=== PATIENT | male | born 1955 | race Caucasian/White ===

== ENCOUNTER 2016-10-06 17:55 | Emergency (ER) | payer BC ==
[2016-10-06 20:21] VITALS: BP 165/84
[2016-10-06] MEDS ORDERED: Cyclobenzaprine TAB* 10 MG PO ONE (20:41)
--- NOTE | 2016-10-06 20:41 | UC ---
Lower Extremity/Ankle HPI - HPI Summary HPI Summary: bent over lifting boxes off a pallet at work today. felt pain in the back of his right thigh. Now hurts to weight bear - History of Current Complaint Chief Complaint: UCLowerExtremity Stated Complaint: LEG PAIN Time Seen by Provider: 10/06/16 20:25 Hx Obtained From: Patient Onset/Duration: Sudden Onset, Lasting Hours - 4, Still Present Severity Initially: Moderate Severity Currently: Moderate Pain Intensity: 7 Pain Scale Used: 0-10 Numeric Aggravating Factor(s): Standing, Ambulation Alleviating Factor(s): Rest, Ice Able to Bear Weight: Yes - Allergies/Home Medications Allergies/Adverse Reactions: Allergies Allergy/AdvReac Type Severity Reaction Status Date / Time No Known Allergies Allergy Verified 10/06/16 20:21 Home Medications: Home Medications Acetaminophen [Eq Pain Reliever] 1,000 mg PO 10/06/16 [History] Cholecalciferol [Vitamin D3] 1,000 unit PO 10/06/16 [History] Magnesium 500 mg PO 10/06/16 [History] Multiple Vitamins W/ Minerals [Multivitamin Men 50+] 1 tab PO 10/06/16 [History] PMH/Surg Hx/FS Hx/Imm Hx Previously Healthy: Yes - blood clot 20 years ago, back issues Endocrine History Of: Denies: Diabetes, Thyroid Disease Cardiovascular History Of: Denies: Cardiac Disorders, Hypertension Respiratory History Of: Denies: COPD, Asthma GI/ History Of: Denies: Ulcer - Surgical History Surgical History: None - Family History Known Family History: Positive: None - Social History Occupation: Employed Full-time Lives: With Family Alcohol Use: None Substance Use Type: None Smoking Status (MU): Never Smoked Tobacco Review of Systems Constitutional: Negative Skin: Negative Eyes: Negative ENT: Negative Respiratory: Negative Cardiovascular: Negative Gastrointestinal: Negative Genitourinary: Negative Motor: Negative Neurovascular: Negative Musculoskeletal: Negative, Myalgia - right posterior calf pain Neurological: Negative Psychological: Negative All Other Systems Reviewed And Are Negative: Yes Physical Exam Triage Information Reviewed: Yes Appearance: Well-Appearing, No Pain Distress, Well-Nourished Vital Signs: Initial Vital Signs Temp 97.1 F 10/06/16 20:15 Pulse 53 10/06/16 20:15 Resp 18 10/06/16 20:15 BP 165/84 10/06/16 20:15 Pulse Ox 98 10/06/16 20:15 Vital Signs Reviewed: Yes Eye Exam: Normal Eyes: Positive: Conjunctiva Clear ENT Exam: Normal ENT: Positive: Normal ENT inspection, Hearing grossly normal. Negative: Pharynx normal, Nasal congestion, Nasal drainage, TMs normal, Trismus, Muffled/ hoarse voice Neck exam: Normal Neck: Positive: Supple, Nontender, No Lymphadenopathy Respiratory Exam: Normal Respiratory: Positive: Chest non-tender, Lungs clear, Normal breath sounds, No respiratory distress, No accessory muscle use Cardiovascular Exam: Normal Cardiovascular: Positive: RRR, No Murmur, Pulses Normal, Brisk Capillary Refill Musculoskeletal Exam: Other Musculoskeletal: Positive: Strength Intact, ROM Intact, Edema @ - posterior right calf Neurological Exam: Normal Neurological: Positive: Alert, Muscle Tone Normal Psychological Exam: Normal Skin Exam: Normal Lower Extremity Course/Dx - Course Course Of Treatment: ice elevation rest pain ed follow with [id number] BP with PCP this week - Differential Dx/Diagnosis Differential Diagnosis/HQI/PQRI: Contusion, Sprain, Strain Provider Diagnoses: Hamstring strain right posterior calf, Hypertension with out previous diagnosis Discharge - Discharge Plan Condition: Stable Disposition: HOME Prescriptions: Cyclobenzaprine TAB* [Flexeril 10 MG TAB*] 10 mg PO TID PRN #15 tab PRN Reason: Spasms - Muscle Meloxicam(NF) [Mobic(NF)] 7.5 mg PO BID #14 tab Patient Education Materials: Muscle Strain (ED), Muscle Spasm (ED), Ice Pack Application (ED), DASH Eating Plan (ED), Hypertension (ED) Forms: *Work Release Referrals: Anthony Conroy DO [Doctor of Osteopathy] - 3 Days Additional Instructions: Your Blood pressure today was 165/84.
== END 2016-10-06 21:08 | disposition home or self-care (01) ==
LOC: UCEAST 17:55
DX: S76.911A Strain of unspecified muscles, fascia and tendons at thigh level, right thigh, initial encounter (principal); X50.1XXA Overexertion from prolonged static or awkward postures, initial encounter; Y93.89 Activity, other specified; Y92.89 Other specified places as the place of occurrence of the external cause; Y99.0 Civilian activity done for income or pay; I10 Essential (primary) hypertension; Z86.718 Personal history of other venous thrombosis and embolism
CPT/HCPCS: 99213; A9270-GY; G0463

== ENCOUNTER 2016-10-09 13:39 | Emergency (ER) | payer SELFPAY ==
[2016-10-09 17:38] VITALS: BP 177/99
--- NOTE | 2016-10-09 17:54 | UC ---
Lower Extremity/Ankle HPI - HPI Summary HPI Summary: here to get right thigh re-checked from a strain injury at work 3 days ago--- significantly less pain still painful to walk---and certain lifting movements - History of Current Complaint Chief Complaint: UCLowerExtremity Stated Complaint: LEG COMPLAINT Time Seen by Provider: 10/09/16 17:40 Hx Obtained From: Patient Onset/Duration: Sudden Onset, Lasting Days - 3, Still Present Severity Initially: Moderate Severity Currently: Mild Aggravating Factor(s): Standing, Ambulation Alleviating Factor(s): Rest, Elevation, Ice, OTC Meds Able to Bear Weight: Yes Related History: Occupational Injury - Allergies/Home Medications Allergies/Adverse Reactions: Allergies Allergy/AdvReac Type Severity Reaction Status Date / Time No Known Allergies Allergy Verified 10/09/16 17:31 PMH/Surg Hx/FS Hx/Imm Hx Previously Healthy: Yes Endocrine History Of: Denies: Diabetes, Thyroid Disease Cardiovascular History Of: Denies: Cardiac Disorders, Hypertension Respiratory History Of: Denies: COPD, Asthma GI/ History Of: Denies: Ulcer - Surgical History Surgical History: None - Family History Known Family History: Positive: None - Social History Occupation: Employed Full-time Lives: With Family Alcohol Use: None Substance Use Type: None Smoking Status (MU): Never Smoked Tobacco Review of Systems Constitutional: Negative Skin: Negative Eyes: Negative ENT: Negative Respiratory: Negative Cardiovascular: Negative Gastrointestinal: Negative Genitourinary: Negative Motor: Negative Neurovascular: Negative Musculoskeletal: Myalgia - post. rigth thigh "Hamstring" Neurological: Negative Psychological: Negative All Other Systems Reviewed And Are Negative: Yes Physical Exam Triage Information Reviewed: Yes Appearance: Well-Appearing, No Pain Distress, Well-Nourished Vital Signs: Initial Vital Signs Temp 97.3 F 10/09/16 17:33 Pulse 66 10/09/16 17:33 Resp 16 10/09/16 17:33 BP 177/99 10/09/16 17:33 Pulse Ox 97 10/09/16 17:33 Vital Signs Reviewed: Yes Eye Exam: Normal Eyes: Positive: Conjunctiva Clear ENT Exam: Normal ENT: Positive: Normal ENT inspection, Hearing grossly normal, Pharynx normal. Negative: Nasal congestion, Nasal drainage, Trismus, Muffled/hoarse voice Dental Exam: Normal Neck exam: Normal Neck: Positive: Supple, Nontender, No Lymphadenopathy Respiratory Exam: Normal Respiratory: Positive: Chest non-tender, Lungs clear, Normal breath sounds, No respiratory distress, No accessory muscle use Cardiovascular Exam: Normal Cardiovascular: Positive: RRR, No Murmur, Pulses Normal, Brisk Capillary Refill Musculoskeletal Exam: Normal Musculoskeletal: Positive: Strength Intact, ROM Intact, No Edema Neurological: Positive: Muscle Tone Normal Psychological Exam: Normal Skin Exam: Normal Lower Extremity Course/Dx - Course Course Of Treatment: continue treatment as planned, off work as planned follow with ortho if fails to improve. HBP DASH Diet information follow with Dr. Conroy in next 7-14 days - Differential Dx/Diagnosis Differential Diagnosis/HQI/PQRI: Contusion, Sprain, Strain Provider Diagnoses: Right thigh muscle strain, High blood pressure withour current treatment or DX of HTN Discharge - Discharge Plan Condition: Stable Disposition: HOME Patient Education Materials: Muscle Strain (ED), DASH Eating Plan (ED), Hypertension (ED) Referrals: Anthony Conroy DO [Primary Care Provider] - 1 Week (or as planned to follow up and recheck blood pressure) Additional Instructions: Decrease Meloxicam to 1 time a day
== END 2016-10-09 18:03 | disposition home or self-care (01) ==
LOC: UCEAST 13:39
DX: S76.911A Strain of unspecified muscles, fascia and tendons at thigh level, right thigh, initial encounter (principal); X50.0XXA Overexertion from strenuous movement or load, initial encounter; R03.0 Elevated blood-pressure reading, without diagnosis of hypertension
CPT/HCPCS: 99211; G0463

== ENCOUNTER 2016-10-12 11:38 | Emergency (ER) | payer OTHER ==
[2016-10-12 13:34] VITALS: BP 157/87
--- NOTE | 2016-10-12 14:15 | UC ---
Vipul Cullen Soohyun, scribed for Keyla Díaz MD on 10/12/16 at 1358 . Lower Extremity/Ankle HPI - HPI Summary HPI Summary: This 61 y/o male presents to [facility] for persistent RLE leg pain since 6 days ago ( 10/06/2016). Pt was lifting and moving containers at [employer] at work when he pulled his right hamstring. Weight bearing makes the pain worse. He visited twice previously for the same complaint, and was discharged with flexeril rx, increased meloxicam dose, and walker from the last visit. He decided to visit today again when he became concerned with persistent pain and hoping for ortho referral. RLE leg pain is slowly getting better, but he doesn't feel ready to get back to work. PMHx includes DVT. Primary care involves Dr. Conroy, but pt hasn't been able to follow up with his primary due to the office not dealing with work comp. PMHx includes chronic back pain. Former smoker and nondrinker. Plan of care involving ortho outpatient f/u and differential dx including DVT are discussed with pt, and he is agreeable. Pt is strongly encouraged to watch out for any fever, redness, or worsening pain. - History of Current Complaint Stated Complaint: LEG COMPLAINT Hx Obtained From: Patient, Medical Records Onset/Duration: Lasting Days, Still Present Severity Initially: Moderate Severity Currently: Moderate Pain Intensity: 1 Pain Scale Used: 0-10 Numeric Aggravating Factor(s): Other - Weight bearing Alleviating Factor(s): Rest Able to Bear Weight: Yes Related History: Occupational Injury - Allergies/Home Medications Allergies/Adverse Reactions: Allergies Allergy/AdvReac Type Severity Reaction Status Date / Time No Known Allergies Allergy Verified 10/12/16 13:22 PMH/Surg Hx/FS Hx/Imm Hx Previously Healthy: No Endocrine History Of: Denies: Diabetes, Thyroid Disease Cardiovascular History Of: Reports: Deep Vein Thrombosis Denies: Cardiac Disorders, Hypertension Respiratory History Of: Denies: COPD, Asthma GI/ History Of: Denies: Ulcer - Surgical History Surgical History: None - Family History Known Family History: Negative: Cardiac Disease - Social History Alcohol Use: Rare Substance Use Type: None Smoking Status (MU): Former Smoker Review of Systems Constitutional: Negative Skin: Negative Eyes: Negative ENT: Negative Respiratory: Negative Cardiovascular: Negative Gastrointestinal: Negative Genitourinary: Negative Motor: Negative Neurovascular: Negative Musculoskeletal: Myalgia, Other: - RLE leg pain Neurological: Negative Psychological: Negative All Other Systems Reviewed And Are Negative: Yes Physical Exam Triage Information Reviewed: Yes Appearance: Well-Appearing, Well-Nourished, Pain Distress Vital Signs: Initial Vital Signs Temp 98.7 F 10/12/16 13:24 Pulse 64 10/12/16 13:24 Resp 18 10/12/16 13:24 BP 157/87 10/12/16 13:24 Pulse Ox 95 10/12/16 13:24 Vital Signs Reviewed: Yes Eyes: Positive: Conjunctiva Clear ENT: Positive: Normal ENT inspection, Hearing grossly normal. Negative: Muffled /hoarse voice Neck: Positive: Supple, Nontender Respiratory: Positive: Lungs clear, Normal breath sounds, No respiratory distress Cardiovascular: Positive: No Murmur, Pulses Normal, Brisk Capillary Refill Musculoskeletal: Positive: Strength Limited @ - right leg, ROM Limited @ - right leg, Other: - Pain at right mid posterior thigh, distal pulses intact Neurological: Positive: Alert, Muscle Tone Normal - No focal weakness. Sensation intact Psychological Exam: Normal Skin Exam: Normal - Negative ecchymosis Lower Extremity Course/Dx - Course Course Of Treatment: Home medication/supplement list are reviewed. Vitals are reviewed, and elevated blood pressure of 157/87 is noted. No known PMHx of HTN. Pt with 3rd visit for same workman's comp leg injury. Pt also with hx DVT, but pain is improving, so do not feel that pt has a new DVT. Will refer to orthopedics for further eval and RX. Appt made for 10/15/16 at 2:30pm with Dr. Rubio. - Differential Dx/Diagnosis Differential Diagnosis/HQI/PQRI: Sprain, Strain, Other - hamstring strain, hamstring tear Provider Diagnoses: 1) Right leg pain 2) Elevated blood pressure without dx of HTN. Discharge - Discharge Plan Condition: Stable Disposition: HOME Prescriptions: Cyclobenzaprine TAB* [Flexeril 10 MG TAB*] 10 mg PO TID PRN #15 tab PRN Reason: Spasms - Muscle Patient Education Materials: Leg Pain (ED) Forms: *Work Release Referrals: Jared Rubio MD [Medical Doctor] - Anthony Conroy DO [Primary Care Provider] - 10/15/16 2:30 pm Additional Instructions: RETURN TO URGENT CARE FOR ANY NEW OR WORSENING SYMPTOMS SUCH REDNESS, FEVER, OR INCREASED PAIN. The documentation as recorded by the Vipul moy Soohyun accurately reflects the service I personally performed and the decisions made by , Keyla Díaz MD.
== END 2016-10-12 14:27 | disposition home or self-care (01) ==
LOC: UCEAST 11:38
DX: M54.9 Dorsalgia, unspecified (principal); M79.604 Pain in right leg; G89.29 Other chronic pain; R03.0 Elevated blood-pressure reading, without diagnosis of hypertension; Z86.718 Personal history of other venous thrombosis and embolism; Z87.891 Personal history of nicotine dependence
CPT/HCPCS: 99211; G0463

== ENCOUNTER 2017-04-23 14:22 | Emergency (ER) | payer BC, OTHER ==
[2017-04-23 14:42] VITALS: BP 166/85
--- NOTE | 2017-04-23 15:31 | UC ---
Skin Complaint HPI - HPI Summary HPI Summary: Patient presents with complaints of a skin tag that was on the right side of his neck,he scrapped it off accidentally and he couldn't get it to stop bleding. He is not on anticoagulants. He presents for evaluation and assistance with the bleedings. He has a dressing on the left side of his neck. - History of Current Complaint Chief Complaint: UCWounds Time Seen by Provider: 04/23/17 15:14 Stated Complaint: WOUND ON NECK Hx Obtained From: Patient Onset/Duration: Sudden Onset Skin Exposure Onset/Duration: Minutes Ago Timing: Constant Onset Severity: Moderate Aggravating Factor(s): Touch Alleviating Factor(s): Other - pressure Associated Signs & Symptoms: Positive: Negative - Allergy/Home Medications Allergies/Adverse Reactions: Allergies Allergy/AdvReac Type Severity Reaction Status Date / Time No Known Allergies Allergy Verified 04/23/17 14:43 Review of Systems Constitutional: Negative Skin: Other - bleeding skin tag on left side of neck. Eyes: Negative ENT: Negative Respiratory: Negative Cardiovascular: Negative Gastrointestinal: Negative Genitourinary: Negative Motor: Negative Neurovascular: Negative Musculoskeletal: Negative All Other Systems Reviewed And Are Negative: Yes PMH/Surg Hx/FS Hx/Imm Hx Previously Healthy: Yes - Surgical History Surgical History: None - Family History Known Family History: Positive: None Negative: Cardiac Disease - Social History Lives: With Family Alcohol Use: Occasionally Substance Use Type: None Smoking Status (MU): Former Smoker - Immunization History Most Recent Influenza Vaccination: 03/2017 Most Recent Tetanus Shot: Unknown Physical Exam Triage Information Reviewed: Yes Appearance: Well-Appearing Vital Signs: Initial Vital Signs Temp 98.2 F 04/23/17 14:36 Pulse 71 04/23/17 14:36 Resp 16 04/23/17 14:36 BP 166/85 04/23/17 14:36 Pulse Ox 97 04/23/17 14:36 Vital Signs Reviewed: Yes Eye Exam: Normal ENT Exam: Normal Neck exam: Normal Neck: Positive: 1 Respiratory Exam: Normal Cardiovascular Exam: Normal Musculoskeletal Exam: Normal Skin Exam: Other Course/Dx - Course Course Of Treatment: Patient presents due to uncontrolled bleeding from a skin tag that he accidentally scrapped of, he arrives with dressing in place, which was removed and the bleeding has stopped. I reapplied another dressing and patient was discharged and referred to dermatology. - Differential Diagnoses - Skin Complaint Differential Diagnoses: Other - skin tag - Diagnoses Provider Diagnoses: skin tag Discharge - Discharge Plan Condition: Stable Disposition: HOME Referrals: Anthony Conroy DO [Primary Care Provider] - Additional Instructions: The bleeding from the skin tag has stopped/ Patient has his own dermatologists.
== END 2017-04-23 15:26 | disposition home or self-care (01) ==
LOC: UCEAST 14:22
DX: L91.8 Other hypertrophic disorders of the skin (principal); Z87.891 Personal history of nicotine dependence
CPT/HCPCS: 99211; G0463

== ENCOUNTER 2023-05-18 20:58 | Observation (INO) ==
[2023-05-18] MEDS ORDERED: Famotidine IV 10 MG/ML 2 ml VIAL (20 mg) IV SLOW PU ONE (21:36)
[2023-05-18] MEDS ORDERED: Al Hydrox/Mg Hydrox/Simet LIQ 30 ML UDC PO ONE (21:36)
[2023-05-18 21:37] LABS: ABS Basophils 0.1 10^3/uL (0.0-0.1); ABS Lymphocytes 0.7 10^3/uL (1.0-4.8); ABS Monocytes 0.8 10^3/uL (0.0-1.1); ABS Neutrophils 10.5 10^3/uL (1.5-7.6); ABS Nucleated RBC 0.01 10^3/ul; Eosinophil % 0.1 %; Hematocrit 40.7 % (38-53); Hemoglobin 13.6 g/dL (13.2-16.3); Lymphocyte % 5.6 %; Mean Corpuscular Hemoglobin 30.8 pg (27-33); Mean Corpuscular Hgb Conc 33.5 g/dL (31-36); Mean Corpuscular Volume 91.9 fL (80-97); Mean Platelet Volume 7.8 fL (7.5-11.2); Platelet Count 200 10^3/uL (150-450); Red Blood Count 4.43 10^6/uL (4.06-5.63); Red Cell Distribution Width 13.7 % (12-17)
[2023-05-18 21:55] LABS: Albumin 3.6 g/dL (3.2-5.2); C Reactive Protein 116.71 mg/L (<8.01); Creatinine, Serum 0.96 mg/dL (0.67-1.17); Globulin 3.6 g/dL (2-4); Magnesium 2.1 mg/dL (1.9-2.7); Potassium 3.4 mmol/L (3.5-5.0); Total Bilirubin 1.1 mg/dL (0.2-1.0); Total Protein 7.2 g/dL (6.4-8.9); eGFR CKD-EPI 86.1 (>60)
[2023-05-18] MEDS ORDERED: Iohexol 350 (CONTRAST) 500 ML MDV IV ONE (22:53)
[2023-05-18 23:42] LABS: High Sensitivity Troponin 1 Hr 12 pg/mL (<20)
[2023-05-19] MEDS ORDERED: Piperacillin/Tazobac 3.375 BAG 3.375 GM/100 ML BAG IV ONE (00:01)
[2023-05-19] MEDS ORDERED: Lactated Ringers 1000 ml BAG 1,000 ML IV ONE (00:58)
[2023-05-19 02:10] LABS: Urine Appearance Clear; Urine Bilirubin Negative (Negative); Urine Blood Negative (Negative); Urine Color Yellow; Urine Glucose 3+(>=500 mg/dL) (Negative); Urine Ketones Negative (Negative); Urine Nitrite Negative (Negative); Urine Protein Negative (Negative); Urine Urobilinogen Negative (Negative)
[2023-05-19] MEDS ORDERED: Zosyn per Pharmacy NOTE FOLLOW UP SCH (05:00)
[2023-05-19] MEDS ORDERED: Potassium Chlor 20 meq TAB.ER PO ONE (05:17)
[2023-05-19] MEDS: NS 0.9% 1000 ml BAG 1,000 ML IV SCH ×2 (05:19→14:35)
[2023-05-19] MEDS: ZOSYN 3.375 GM Q8H per EXTENDED INFUSION IV SCH ×4 (05:19→22:34)
[2023-05-19 08:57] LABS: ABS Lymphocytes 0.8 10^3/uL (1.0-4.8); ABS Monocytes 0.7 10^3/uL (0.0-1.1); ABS Neutrophils 7.7 10^3/uL (1.5-7.6); Eosinophil % 0.2 %; Hemoglobin 13.1 g/dL (13.2-16.3); Lymphocyte % 8.7 %; Mean Corpuscular Hemoglobin 31.5 pg (27-33); Mean Corpuscular Hgb Conc 34.4 g/dL (31-36); Mean Corpuscular Volume 91.6 fL (80-97); Mean Platelet Volume 7.8 fL (7.5-11.2); Platelet Count 198 10^3/uL (150-450); Red Blood Count 4.15 10^6/uL (4.06-5.63); Red Cell Distribution Width 13.9 % (12-17); White Blood Count 9.2 10^3/uL (3.6-10.2)
[2023-05-19] MEDS ORDERED: CMCS:Meloxicam 7.5 mg TAB (NF) PO SCH (09:00)
[2023-05-19 09:12] LABS: Calcium 8.7 mg/dL (8.6-10.3); Creatinine, Serum 0.97 mg/dL (0.67-1.17)
[2023-05-19 09:25] LABS: Albumin 3.3 g/dL (3.2-5.2); Direct Bilirubin 0.2 mg/dL (0.03-0.18); Globulin 3.3 g/dL (2-4); Indirect Bilirubin 0.9 mg/dL (0.3-1.0); Total Bilirubin 1.1 mg/dL (0.2-1.0); Total Protein 6.6 g/dL (6.4-8.9)
[2023-05-19] MEDS ORDERED: Morphine 2 MG/ML SYRINGE IV PRN (11:14)
[2023-05-19] MEDS ORDERED: Ondansetron 4 mg VIAL 2 MG/ML 2 ml VIAL IV PRN (11:14)
[2023-05-20] MEDS: NS 0.9% 1000 ml BAG 1,000 ML IV SCH (02:59)
[2023-05-20 06:13] LABS: ABS Lymphocytes 0.7 10^3/uL (1.0-4.8); ABS Monocytes 0.4 10^3/uL (0.0-1.1); Eosinophil % 0.4 %; Hematocrit 37.6 % (38-53); Hemoglobin 12.8 g/dL (13.2-16.3); Lymphocyte % 9.7 %; Mean Corpuscular Hemoglobin 31.3 pg (27-33); Mean Corpuscular Hgb Conc 34.2 g/dL (31-36); Mean Corpuscular Volume 91.4 fL (80-97); Nucleated Red Blood Cells % 0.1 %/100WBC (0.0-0.8); Platelet Count 183 10^3/uL (150-450); Red Blood Count 4.11 10^6/uL (4.06-5.63); Red Cell Distribution Width 13.9 % (12-17); White Blood Count 7.2 10^3/uL (3.6-10.2)
[2023-05-20 06:29] LABS: Calcium 8.5 mg/dL (8.6-10.3); Creatinine, Serum 0.91 mg/dL (0.67-1.17); Magnesium 2.2 mg/dL (1.9-2.7); Potassium 4.2 mmol/L (3.5-5.0); eGFR CKD-EPI 91.8 (>60)
[2023-05-20] MEDS: ZOSYN 3.375 GM Q8H per EXTENDED INFUSION IV SCH (06:34)
[2023-05-20 10:19] VITALS: BP 130/79
[2023-05-20 13:29] LABS: Albumin 3.2 g/dL (3.2-5.2); Direct Bilirubin 2.4 mg/dL (0.03-0.18); Globulin 3.1 g/dL (2-4); Indirect Bilirubin 0.9 mg/dL (0.3-1.0); Total Bilirubin 3.3 mg/dL (0.2-1.0); Total Protein 6.3 g/dL (6.4-8.9)
== END 2023-05-20 14:24 | disposition home or self-care (01) ==
LOC: ED 20:58 → EDHOLD 05-19 02:45 → SUATTDRO 05-19 02:45 → INTOOBSV 05-19 02:45 → SSU 05-19 11:33
PROVIDERS: ADMIT Internal Medicine; ATTEND Internal Medicine

== ENCOUNTER 2023-06-13 10:57 | Inpatient (IN) ==
[2023-06-13] MEDS: NS 0.9% 1000 ml BAG 1,000 ML IV ONE (12:10)
[2023-06-13 12:11] LABS: Hematocrit 43.1 % (38-53); Hemoglobin 14.7 g/dL (13.2-16.3); Mean Corpuscular Hemoglobin 30.9 pg (27-33); Mean Corpuscular Hgb Conc 34.2 g/dL (31-36); Mean Corpuscular Volume 90.3 fL (80-97); Red Blood Count 4.77 10^6/uL (4.06-5.63); Red Cell Distribution Width 15.3 % (12-17); White Blood Count 6.3 10^3/uL (3.6-10.2)
[2023-06-13 12:24] LABS: Albumin 3.9 g/dL (3.2-5.2); Albumin/Globulin Ratio 1.3 (1-3); Calcium 9.2 mg/dL (8.6-10.3); Creatinine, Serum 1.15 mg/dL (0.67-1.17); Globulin 3.1 g/dL (2-4); Magnesium 1.9 mg/dL (1.9-2.7); Potassium 3.9 mmol/L (3.5-5.0); eGFR CKD-EPI 69.3 (>60)
[2023-06-13 13:11] LABS: ABS Eosinophils 0.1 10^3/uL (0.0-0.5); ABS Lymphocytes 0.6 10^3/uL (1.0-4.8); ABS Monocytes 0.6 10^3/uL (0.0-1.1); ABS Neutrophils 4.9 10^3/uL (1.5-7.6); ABS Nucleated RBC 0.03 10^3/ul; Eosinophil % 1.4 %; Lymphocyte % 9.7 %; Mean Platelet Volume 8.3 fL (7.5-11.2); Nucleated Red Blood Cells % 0.4 %/100WBC (0.0-0.8); Platelet Count 98 10^3/uL (150-450)
[2023-06-13] MEDS: Iohexol 350 (CONTRAST) 500 ML MDV IV ONE (14:46)
[2023-06-13] MEDS: Lactated Ringers 1000 ml BAG 1,000 ML IV ONE (14:50)
[2023-06-13] MEDS: Piperacillin/Tazobac 3.375 BAG 3.375 GM/100 ML BAG IV ONE (14:51)
[2023-06-13 15:41] LABS: Direct Bilirubin 4.9 mg/dL (0.03-0.18); Indirect Bilirubin 1.9 mg/dL (0.3-1.0); Total Bilirubin 6.8 mg/dL (0.2-1.0)
[2023-06-13] MEDS ORDERED: Zosyn per Pharmacy NOTE FOLLOW UP SCH (23:45)
[2023-06-14] MEDS: Heparin 5000 UNITS/ML 1 mL VIAL SUBCUT ONE (00:15)
[2023-06-14] MEDS: ZOSYN 3.375 GM x ONE DOSE over 30 miuntes IV (00:42)
[2023-06-14] MEDS: ZOSYN 3.375 GM Q8H per EXTENDED INFUSION IV SCH (04:48)
[2023-06-14] MEDS: Ampicillin ADVAN 2 GM in NS 0.9% 100 ml BAG 100 ML IVPB SCH ×2 (06:45→17:00)
[2023-06-14 06:56] LABS: Albumin 3.4 g/dL (3.2-5.2); Albumin/Globulin Ratio 1.3 (1-3); Calcium 8.8 mg/dL (8.6-10.3); Creatinine, Serum 1.02 mg/dL (0.67-1.17); Globulin 2.7 g/dL (2-4); Magnesium 1.8 mg/dL (1.9-2.7); Potassium 3.7 mmol/L (3.5-5.0); Total Bilirubin 5.7 mg/dL (0.2-1.0); Total Protein 6.1 g/dL (6.4-8.9); eGFR CKD-EPI 80.1 (>60)
[2023-06-14 07:15] LABS: Hematocrit 39.3 % (38-53); Hemoglobin 13.1 g/dL (13.2-16.3); Mean Corpuscular Hemoglobin 30.3 pg (27-33); Mean Corpuscular Hgb Conc 33.4 g/dL (31-36); Mean Corpuscular Volume 90.7 fL (80-97); Mean Platelet Volume 8.8 fL (7.5-11.2); Platelet Count 84 10^3/uL (150-450); Red Blood Count 4.33 10^6/uL (4.06-5.63); White Blood Count 4.2 10^3/uL (3.6-10.2)
[2023-06-14] MEDS: Magnesium Sulfate 2 gm BAG 2 GM/50 ML BAG IVPB ONE (08:05)
[2023-06-14] MEDS: cefTRIAXone 1 gm/50 mL D5W 1 GM/50 ML BAG IV SCH (08:09)
[2023-06-14] MEDS ORDERED: Ondansetron 4 mg VIAL 2 MG/ML 2 ml VIAL IV PRN (11:18)
[2023-06-14 12:20] LABS: Urine Appearance Clear; Urine Bilirubin Negative (Negative); Urine Blood Negative (Negative); Urine Color Amber; Urine Glucose 1+(50 mg/dL) (Negative); Urine Ketones Trace (Negative); Urine Nitrite Negative (Negative); Urine Protein Negative (Negative); Urine Urobilinogen Negative (Negative)
[2023-06-14] MEDS: metroNIDAZOLE IV 500 MG/100ML 500 MG/100 ML BAG IVPB SCH ×2 (12:39→21:36)
[2023-06-14] MEDS: KCL 20 MEQ/100 ML IVPREMIX 20 MEQ/100 ML BAG IV SCH (13:57)
[2023-06-15 05:51] LABS: ABS Eosinophils 0.2 10^3/uL (0.0-0.5); ABS Lymphocytes 0.8 10^3/uL (1.0-4.8); ABS Monocytes 0.4 10^3/uL (0.0-1.1); ABS Neutrophils 2.8 10^3/uL (1.5-7.6); Hematocrit 38.2 % (38-53); Hemoglobin 12.9 g/dL (13.2-16.3); Lymphocyte % 17.9 %; Mean Corpuscular Hemoglobin 30.6 pg (27-33); Mean Corpuscular Hgb Conc 33.9 g/dL (31-36); Mean Corpuscular Volume 90.4 fL (80-97); Mean Platelet Volume 8.4 fL (7.5-11.2); Nucleated Red Blood Cells % 0.1 %/100WBC (0.0-0.8); Platelet Count 89 10^3/uL (150-450); Red Blood Count 4.23 10^6/uL (4.06-5.63); White Blood Count 4.3 10^3/uL (3.6-10.2)
[2023-06-15 05:58] LABS: Albumin 3.3 g/dL (3.2-5.2); Albumin/Globulin Ratio 1.2 (1-3); Calcium 8.5 mg/dL (8.6-10.3); Creatinine, Serum 0.87 mg/dL (0.67-1.17); Globulin 2.7 g/dL (2-4); Magnesium 1.9 mg/dL (1.9-2.7); Potassium 3.9 mmol/L (3.5-5.0); Total Bilirubin 2.1 mg/dL (0.2-1.0)
[2023-06-15] MEDS: Lactated Ringers 1000 ml BAG 1,000 ML IV SCH (12:56)
[2023-06-15] MEDS: Buffered Lidocaine 1% SYRIN 1 ml INTRADERM ONE (12:56)
[2023-06-15] MEDS: Heparin 5000 UNITS/ML 1 mL VIAL SUBCUT SCH (21:07)
[2023-06-16 06:20] LABS: ABS Eosinophils 0.2 10^3/uL (0.0-0.5); ABS Lymphocytes 0.8 10^3/uL (1.0-4.8); ABS Monocytes 0.4 10^3/uL (0.0-1.1); ABS Neutrophils 2.5 10^3/uL (1.5-7.6); Eosinophil % 4.4 %; Hematocrit 37.9 % (38-53); Hemoglobin 12.6 g/dL (13.2-16.3); Lymphocyte % 20.3 %; Mean Corpuscular Hemoglobin 30.2 pg (27-33); Mean Corpuscular Hgb Conc 33.4 g/dL (31-36); Mean Corpuscular Volume 90.6 fL (80-97); Nucleated Red Blood Cells % 0.1 %/100WBC (0.0-0.8); Platelet Count 88 10^3/uL (150-450); Red Blood Count 4.18 10^6/uL (4.06-5.63); Red Cell Distribution Width 14.6 % (12-17); White Blood Count 3.8 10^3/uL (3.6-10.2)
[2023-06-16] MEDS ORDERED: Bupivacaine 0.25% SDV PF 10 ML VIAL INJ ONE (06:50)
[2023-06-16] MEDS ORDERED: Lactated Ringers 1000 ml BAG 1,000 ML IV SCH (07:00)
[2023-06-16] MEDS ORDERED: Bupivacaine 0.25% SDV 30 ML ONE (07:07)
[2023-06-16] MEDS ORDERED: Propofol 10 MG/ML 20 ML BTL ONE (07:12)
[2023-06-16] MEDS ORDERED: Rocuronium 50 mg VIAL 10 mg/ml 5 ml VIAL (50 mg) ONE ×2 (07:12→08:19)
[2023-06-16] MEDS ORDERED: fentaNYL 100 mcg/2 ml 50 MCG/ML VIAL ONE ×2 (07:14→08:58)
[2023-06-16] MEDS ORDERED: Midazolam 2 mg/2 ml VIAL 1 mg/ml 2 ml VIAL (2 mg) ONE (07:14)
[2023-06-16] MEDS ORDERED: Dexmedetomidine 200 mcg/2 ml 2 ml VIAL (200 mcg) ONE (07:46)
[2023-06-16 07:49] LABS: Calcium 8.3 mg/dL (8.6-10.3); Creatinine, Serum 0.92 mg/dL (0.67-1.17); Magnesium 1.8 mg/dL (1.9-2.7); Potassium 3.7 mmol/L (3.5-5.0); eGFR CKD-EPI 90.6 (>60)
[2023-06-16] MEDS ORDERED: Dexamethasone IV 4 MG/ML VIAL 1 ml VIAL ONE (07:53)
[2023-06-16] MEDS ORDERED: Ondansetron 4 mg VIAL 2 MG/ML 2 ml VIAL ONE (07:53)
[2023-06-16] MEDS ORDERED: fentaNYL 100 mcg/2 ml 50 MCG/ML VIAL IV PRN (08:11)
[2023-06-16] MEDS ORDERED: Naloxone 0.4 mg VIAL 0.4 mg/ml 1 ml VIAL IV PRN (08:11)
[2023-06-16] MEDS ORDERED: Ondansetron 4 mg VIAL 2 MG/ML 2 ml VIAL IV PRN (08:11)
[2023-06-16] MEDS ORDERED: HYDROmorphone 1 MG/1 ML SYRINGE IV PRN (08:11)
[2023-06-16] MEDS ORDERED: Metoclopramide 5 MG/ML VIAL (10 mg) ONE (09:53)
[2023-06-16] MEDS: Metoclopramide 5 MG/ML VIAL (10 mg) IV PRN (09:54)
[2023-06-16 13:04] VITALS: BP 120/68
[2023-06-16] MEDS ORDERED: Ampicillin ADVAN 2 GM in NS 0.9% 100 ml BAG 100 ML IVPB SCH (14:00)
[2023-06-16] MEDS ORDERED: [UNRECOGNIZED DRUG - OTHER] LEFT EYE SCH (21:00)
[2023-06-16] MEDS ORDERED: NEOMY LEFT EYE SCH (21:00)
== END 2023-06-16 12:45 | disposition home or self-care (01) | DRG 418 ==
LOC: ED 10:57 → EDHOLD 10:57 → SUATTDRO 20:31 → SSU 22:37
PROVIDERS: ADMIT Internal Medicine; ATTEND Student in an Organized Health Care Education/Training Program

== ENCOUNTER 2023-06-16 18:46 | Inpatient (IN) ==
[2023-06-16] MEDS: Ampicillin ADVAN 2 GM in NS 0.9% 100 ml BAG 100 ML IVPB SCH (22:28)
[2023-06-16] MEDS ORDERED: Lactated Ringers 1000 ml BAG 1,000 ML IV ONE (23:15)
[2023-06-17] MEDS: Ampicillin ADVAN 2 GM in NS 0.9% 100 ml BAG 100 ML IVPB SCH ×7 (02:56→23:45)
[2023-06-17] MEDS ORDERED: Polyethylene Glycol 3350 17 GM PACKET PO PRN (03:08)
[2023-06-17] MEDS ORDERED: Senna TAB 8.6 mg TAB PO PRN (03:08)
[2023-06-17 07:01] LABS: ABS Eosinophils 0.1 10^3/uL (0.0-0.5); ABS Monocytes 0.5 10^3/uL (0.0-1.1); ABS Neutrophils 5.7 10^3/uL (1.5-7.6); ABS Nucleated RBC 0.01 10^3/ul; Eosinophil % 0.8 %; Hematocrit 36.4 % (38-53); Hemoglobin 12.4 g/dL (13.2-16.3); Lymphocyte % 13.2 %; Mean Corpuscular Hemoglobin 30.9 pg (27-33); Mean Corpuscular Hgb Conc 34.1 g/dL (31-36); Mean Corpuscular Volume 90.7 fL (80-97); Mean Platelet Volume 8.2 fL (7.5-11.2); Nucleated Red Blood Cells % 0.1 %/100WBC (0.0-0.8); Platelet Count 93 10^3/uL (150-450); Red Blood Count 4.02 10^6/uL (4.06-5.63); Red Cell Distribution Width 15.1 % (12-17); White Blood Count 7.3 10^3/uL (3.6-10.2)
[2023-06-17 07:42] LABS: Albumin 3.3 g/dL (3.2-5.2); Albumin/Globulin Ratio 1.4 (1-3); Calcium 8.6 mg/dL (8.6-10.3); Creatinine, Serum 1.02 mg/dL (0.67-1.17); Globulin 2.4 g/dL (2-4); Potassium 3.6 mmol/L (3.5-5.0); Total Bilirubin 1.4 mg/dL (0.2-1.0); Total Protein 5.7 g/dL (6.4-8.9); eGFR CKD-EPI 80.1 (>60)
[2023-06-18] MEDS: Ampicillin ADVAN 2 GM in NS 0.9% 100 ml BAG 100 ML IVPB SCH ×3 (02:48→11:51)
[2023-06-18 06:49] LABS: ABS Eosinophils 0.2 10^3/uL (0.0-0.5); ABS Lymphocytes 1.1 10^3/uL (1.0-4.8); ABS Monocytes 0.5 10^3/uL (0.0-1.1); ABS Neutrophils 3.3 10^3/uL (1.5-7.6); ABS Nucleated RBC 0.01 10^3/ul; Eosinophil % 4.1 %; Hematocrit 36.3 % (38-53); Hemoglobin 12.2 g/dL (13.2-16.3); Lymphocyte % 20.8 %; Mean Corpuscular Hemoglobin 30.5 pg (27-33); Mean Corpuscular Hgb Conc 33.6 g/dL (31-36); Mean Corpuscular Volume 90.7 fL (80-97); Mean Platelet Volume 8.3 fL (7.5-11.2); Nucleated Red Blood Cells % 0.1 %/100WBC (0.0-0.8); Platelet Count 87 10^3/uL (150-450); Red Cell Distribution Width 14.9 % (12-17); White Blood Count 5.1 10^3/uL (3.6-10.2)
[2023-06-18 06:50] LABS: Calcium 8.5 mg/dL (8.6-10.3); Magnesium 1.7 mg/dL (1.9-2.7); Potassium 3.7 mmol/L (3.5-5.0)
[2023-06-18] MEDS ORDERED: Potassium Chloride LIQUID 20 MEQ/15 ML LIQUID PO ONE (07:53)
[2023-06-18 10:07] VITALS: BP 130/80
[2023-06-18] MEDS ORDERED: Ampicillin ADVAN 2 GM in NS 0.9% 100 ml BAG 100 ML IVPB SCH (16:00)
== END 2023-06-18 15:50 | disposition home or self-care (01) | DRG 445 ==
LOC: SSU 18:46
PROVIDERS: ADMIT Student in an Organized Health Care Education/Training Program; ATTEND Student in an Organized Health Care Education/Training Program

== ENCOUNTER 2023-10-22 19:46 | Inpatient (IN) ==
[2023-10-22 20:38] LABS: ABS Lymphocytes 0.3 10^3/uL (1.0-4.8); ABS Monocytes 0.4 10^3/uL (0.0-1.1); ABS Neutrophils 6.2 10^3/uL (1.5-7.6); ABS Nucleated RBC 0.01 10^3/ul; Eosinophil % 0.1 %; Hematocrit 38.4 % (38-53); Hemoglobin 12.4 g/dL (13.2-16.3); Lymphocyte % 4.3 %; Mean Corpuscular Hemoglobin 27.2 pg (27-33); Mean Corpuscular Hgb Conc 32.4 g/dL (31-36); Mean Corpuscular Volume 83.9 fL (80-97); Nucleated Red Blood Cells % 0.2 %/100WBC (0.0-0.8); Platelet Count 99 10^3/uL (150-450); Red Blood Count 4.57 10^6/uL (4.06-5.63); Red Cell Distribution Width 17.2 % (12-17); White Blood Count 6.9 10^3/uL (3.6-10.2)
[2023-10-22 20:42] LABS: Activated Partial Thrombo Time 34.8 seconds (26.0-38.0); INR 1.27 (0.83-1.13)
[2023-10-22 20:59] LABS: High Sens Troponin Baseline 47 pg/mL (<20)
[2023-10-22 21:02] LABS: ALT 14 U/L (7-52); AST 23 U/L (13-39); Albumin 3.7 g/dL (3.2-5.2); Albumin/Globulin Ratio 1.1 (1-3); Alkaline Phosphatase 109 U/L (35-149); Anion Gap 9 mmol/L (2-16); Blood Urea Nitrogen 27 mg/dL (6-24); C Reactive Protein 105.51 mg/L (<8.01); CO2 Carbon Dioxide 27 mmol/L (22-32); Calcium 8.9 mg/dL (8.6-10.3); Chloride 100 mmol/L (101-111); Creatinine, Serum 0.93 mg/dL (0.67-1.17); Globulin 3.4 g/dL (2-4); Glucose 108 mg/dL (70-100); Sodium 136 mmol/L (135-145); Total Bilirubin 0.8 mg/dL (0.2-1.0); Total Protein 7.1 g/dL (6.4-8.9); eGFR CKD-EPI 88.9 (>60)
[2023-10-22] MEDS: Piperacillin/Tazobac 3.375 BAG 3.375 GM/100 ML BAG IV ONE (21:06)
[2023-10-22] MEDS: Acetaminophen IV 1 GM/100ML 1,000 MG/100 ML BAG IV ONE (21:06)
[2023-10-22] MEDS: Lactated Ringers 1000 ml BAG 1,000 ML IV ONE (21:06)
[2023-10-22] MEDS: Vancomycin 1,250 MG in NS 0.9% 250 ml 250 ML IVPB ONE (21:25)
[2023-10-22 22:02] LABS: High Sensitivity Troponin 1 Hr 45 pg/mL (<20)
[2023-10-22] MEDS: Iohexol 350 (CONTRAST) 500 ML MDV IV ONE (23:27)
[2023-10-23] MEDS: NS 0.9% 1000 ml BAG 1,000 ML IV SCH (01:55)
[2023-10-23] MEDS ORDERED: Zosyn per Pharmacy NOTE FOLLOW UP SCH ×2 (02:00→11:00)
[2023-10-23 02:02] LABS: Urine Appearance Clear; Urine Bilirubin Negative (Negative); Urine Blood Trace (Negative); Urine Color Light-Yellow; Urine Glucose 3+ (>=300 mg/dL) (Negative); Urine Ketones Negative (Negative); Urine Nitrite Negative (Negative); Urine Protein Negative (Negative); Urine Specific Gravity 1.042 (1.002-1.030); Urine Urobilinogen Negative (Negative); Urine pH 5.5 (5.0-8.0)
[2023-10-23] MEDS: ZOSYN 3.375 GM Q8H per EXTENDED INFUSION IV SCH ×2 (02:54→11:54)
[2023-10-23 05:46] LABS: % Iron Saturation 8 % (15-55); .Transferrin 171 mg/dL (203-362); Iron < 20 ug/dL (50-212); Total Iron Binding Capacity 239 mcg/dL (250-450); Unsaturated Iron Binding 219 ug/dL
[2023-10-23 06:10] LABS: Calcium 8.2 mg/dL (8.6-10.3); Creatinine, Serum 0.85 mg/dL (0.67-1.17); Magnesium 1.9 mg/dL (1.9-2.7); Potassium 3.9 mmol/L (3.5-5.0); eGFR CKD-EPI 94.1 (>60)
[2023-10-23 06:10] LABS: Ferritin 216.8 ng/mL (24-336)
[2023-10-23 06:13] LABS: Folate 16.98 ng/mL (5.90-24.80)
[2023-10-23 06:14] LABS: Vitamin B12 543 pg/mL (180-914)
[2023-10-23 07:05] LABS: Hematocrit 30.3 % (38-53); Hemoglobin 10.2 g/dL (13.2-16.3); Mean Corpuscular Hemoglobin 27.9 pg (27-33); Mean Corpuscular Hgb Conc 33.6 g/dL (31-36); Mean Corpuscular Volume 83.2 fL (80-97); Red Blood Count 3.64 10^6/uL (4.06-5.63); Red Cell Distribution Width 17.1 % (12-17); White Blood Count 4.8 10^3/uL (3.6-10.2)
[2023-10-23 07:31] LABS: ABS Lymphocytes 0.6 10^3/uL (1.0-4.8); ABS Monocytes 0.6 10^3/uL (0.0-1.1); ABS Neutrophils 3.6 10^3/uL (1.5-7.6); ABS Nucleated RBC 0.01 10^3/ul; Eosinophil % 0.1 %; Lymphocyte % 13.5 %; Nucleated Red Blood Cells % 0.1 %/100WBC (0.0-0.8); Platelet Count 78 10^3/uL (150-450)
[2023-10-23] MEDS: Multivitamins/Minerals TAB PO SCH (09:43)
[2023-10-23] MEDS: Meloxicam 7.5 mg TAB (NF) PO PRN (09:55)
[2023-10-23] MEDS: Ampicillin ADVAN 2 GM in NS 0.9% 100 ml BAG 100 ML IVPB SCH (19:29)
[2023-10-24 06:06] LABS: ABS Lymphocytes 0.6 10^3/uL (1.0-4.8); ABS Monocytes 0.5 10^3/uL (0.0-1.1); ABS Neutrophils 2.9 10^3/uL (1.5-7.6); ABS Nucleated RBC 0.01 10^3/ul; Eosinophil % 1.1 %; Hematocrit 29.7 % (38-53); Hemoglobin 9.8 g/dL (13.2-16.3); Lymphocyte % 13.7 %; Mean Corpuscular Hemoglobin 27.8 pg (27-33); Mean Corpuscular Hgb Conc 33.2 g/dL (31-36); Mean Corpuscular Volume 83.6 fL (80-97); Mean Platelet Volume 7.8 fL (7.5-11.2); Nucleated Red Blood Cells % 0.3 %/100WBC (0.0-0.8); Platelet Count 73 10^3/uL (150-450); Red Blood Count 3.55 10^6/uL (4.06-5.63); Red Cell Distribution Width 17.6 % (12-17); White Blood Count 4.1 10^3/uL (3.6-10.2)
[2023-10-24 06:27] LABS: Creatinine, Serum 0.75 mg/dL (0.67-1.17); Magnesium 1.9 mg/dL (1.9-2.7); Potassium 3.9 mmol/L (3.5-5.0); eGFR CKD-EPI 97.7 (>60)
[2023-10-24] MEDS: Enoxaparin 100 MG/ML SYR SUBCUT SCH (20:56)
[2023-10-25 06:21] LABS: ABS Eosinophils 0.1 10^3/uL (0.0-0.5); ABS Lymphocytes 0.6 10^3/uL (1.0-4.8); ABS Monocytes 0.4 10^3/uL (0.0-1.1); ABS Neutrophils 2.9 10^3/uL (1.5-7.6); Eosinophil % 1.5 %; Hematocrit 33.6 % (38-53); Mean Corpuscular Hemoglobin 27.4 pg (27-33); Mean Corpuscular Hgb Conc 32.7 g/dL (31-36); Mean Corpuscular Volume 83.8 fL (80-97); Mean Platelet Volume 7.9 fL (7.5-11.2); Nucleated Red Blood Cells % 0.1 %/100WBC (0.0-0.8); Platelet Count 85 10^3/uL (150-450); Red Blood Count 4.01 10^6/uL (4.06-5.63); Red Cell Distribution Width 17.5 % (12-17)
[2023-10-25 09:15] LABS: Calcium 8.1 mg/dL (8.6-10.3); Creatinine, Serum 0.82 mg/dL (0.67-1.17); Magnesium 1.9 mg/dL (1.9-2.7); Potassium 3.9 mmol/L (3.5-5.0); eGFR CKD-EPI 95.1 (>60)
[2023-10-25] MEDS ORDERED: Senna TAB 8.6 mg TAB PO PRN (17:32)
[2023-10-25] MEDS: Lidocaine PATCH 4% TOPICAL SCH ×2 (18:17→23:25)
[2023-10-25] MEDS: Morphine 2 MG/ML SYRINGE IV PRN (21:11)
[2023-10-25] MEDS: Gadoteridol (CONTRAST) 279.3 MG/ML 10 ML IV ONE (22:52)
[2023-10-26 06:05] LABS: Hematocrit 31.2 % (38-53); Hemoglobin 10.4 g/dL (13.2-16.3); Mean Corpuscular Hemoglobin 27.8 pg (27-33); Mean Corpuscular Hgb Conc 33.2 g/dL (31-36); Mean Corpuscular Volume 83.8 fL (80-97); Mean Platelet Volume 7.9 fL (7.5-11.2); Platelet Count 81 10^3/uL (150-450); Red Blood Count 3.73 10^6/uL (4.06-5.63); Red Cell Distribution Width 17.2 % (12-17); White Blood Count 3.5 10^3/uL (3.6-10.2)
[2023-10-26] MEDS ORDERED: Sulfur Hexaflouride MICROSPHR 25 MG VIAL ONE (07:59)
[2023-10-26] MEDS: Lidocaine PATCH 5% PATCH ONE (14:18)
[2023-10-26] MEDS: Lidocaine PATCH 4% TOPICAL SCH (14:19)
[2023-10-26 16:15] LABS: Anaplasma phagocytophilum Negative (Negative); B. miyamotoi PCR, B Negative (Negative); Babesia divergens/MO-1 Negative (Negative); Babesia ducani Negative (Negative); Ehrlichia chaffeensis Negative (Negative); Ehrlichia ewingii/canis Negative (Negative); Ehrlichia muris eauclairensis Negative (Negative)
[2023-10-26] MEDS: cefTRIAXone 2 gm/50 mL D5W 2 GM/50 ML BAG IV SCH ×3 (17:34→18:16)
[2023-10-26 22:51] LABS: IgG Immunoblot Negative (Negative); IgM Immunoblot Negative (Negative)
[2023-10-27 08:35] LABS: Hematocrit 32.9 % (38-53); Hemoglobin 10.9 g/dL (13.2-16.3); Mean Corpuscular Hemoglobin 27.6 pg (27-33); Mean Corpuscular Hgb Conc 33.1 g/dL (31-36); Mean Corpuscular Volume 83.4 fL (80-97); Platelet Count 90 10^3/uL (150-450); Red Blood Count 3.94 10^6/uL (4.06-5.63); Red Cell Distribution Width 17.3 % (12-17); White Blood Count 4.1 10^3/uL (3.6-10.2)
[2023-10-27 09:02] LABS: Calcium 8.2 mg/dL (8.6-10.3); Creatinine, Serum 0.73 mg/dL (0.67-1.17); Potassium 3.9 mmol/L (3.5-5.0); eGFR CKD-EPI 98.5 (>60)
[2023-10-27 16:29] LABS: ABS Eosinophils 0.1 10^3/uL (0.0-0.5); ABS Lymphocytes 0.5 10^3/uL (1.0-4.8); ABS Monocytes 0.4 10^3/uL (0.0-1.1); ABS Nucleated RBC 0.01 10^3/ul; Eosinophil % 1.8 %; Hematocrit 34.2 % (38-53); Hemoglobin 11.2 g/dL (13.2-16.3); Lymphocyte % 12.4 %; Mean Corpuscular Hemoglobin 27.4 pg (27-33); Mean Corpuscular Hgb Conc 32.8 g/dL (31-36); Mean Corpuscular Volume 83.4 fL (80-97); Mean Platelet Volume 7.5 fL (7.5-11.2); Nucleated Red Blood Cells % 0.4 %/100WBC (0.0-0.8); Platelet Count 94 10^3/uL (150-450); Red Cell Distribution Width 17.5 % (12-17)
[2023-10-27 16:46] LABS: INR 1.09 (0.83-1.13)
[2023-10-27] MEDS: Enoxaparin 100 MG/ML SYR SUBCUT SCH (17:05)
[2023-10-27 17:27] LABS: Calcium 8.1 mg/dL (8.6-10.3); Creatinine, Serum 0.84 mg/dL (0.67-1.17); Potassium 3.9 mmol/L (3.5-5.0); eGFR CKD-EPI 94.4 (>60)
[2023-10-28] MEDS: NS 0.9% 1000 ml BAG 1,000 ML IV SCH ×2 (06:04→12:59)
[2023-10-28] MEDS ORDERED: Naloxone 0.4 mg VIAL 0.4 mg/ml 1 ml VIAL IV PUSH PRN (07:16)
[2023-10-28] MEDS ORDERED: Flumazenil 0.5 mg/5 ml 0.1 MG/ML 5 ml VIAL IV PRN (07:16)
[2023-10-28 07:19] LABS: ABS Eosinophils 0.1 10^3/uL (0.0-0.5); ABS Lymphocytes 0.6 10^3/uL (1.0-4.8); ABS Monocytes 0.4 10^3/uL (0.0-1.1); ABS Neutrophils 2.5 10^3/uL (1.5-7.6); ABS Nucleated RBC 0.02 10^3/ul; Lymphocyte % 16.6 %; Mean Corpuscular Hemoglobin 27.1 pg (27-33); Mean Corpuscular Hgb Conc 32.5 g/dL (31-36); Mean Corpuscular Volume 83.6 fL (80-97); Mean Platelet Volume 8.2 fL (7.5-11.2); Nucleated Red Blood Cells % 0.5 %/100WBC (0.0-0.8); Platelet Count 101 10^3/uL (150-450); Red Blood Count 4.06 10^6/uL (4.06-5.63); Red Cell Distribution Width 17.4 % (12-17); White Blood Count 3.6 10^3/uL (3.6-10.2)
[2023-10-28 07:30] LABS: INR 1.02 (0.83-1.13)
[2023-10-28] MEDS ORDERED: Midazolam 5 mg/5 ml VIAL 1 mg/ml 5 ml VIAL (5 mg) ONE ×2 (07:33→11:20)
[2023-10-28] MEDS ORDERED: Flumazenil 0.5 mg/5 ml 0.1 MG/ML 5 ml VIAL ONE (07:33)
[2023-10-28] MEDS ORDERED: Naloxone 0.4 mg VIAL 0.4 mg/ml 1 ml VIAL ONE (07:33)
[2023-10-28] MEDS ORDERED: fentaNYL 100 mcg/2 ml 50 MCG/ML VIAL ONE ×2 (07:33→11:20)
[2023-10-28 07:36] LABS: Calcium 8.6 mg/dL (8.6-10.3); Creatinine, Serum 0.81 mg/dL (0.67-1.17); Magnesium 2.1 mg/dL (1.9-2.7); Potassium 3.9 mmol/L (3.5-5.0); eGFR CKD-EPI 95.4 (>60)
[2023-10-28] MEDS: fentaNYL 100 mcg/2 ml 50 MCG/ML VIAL IV SLOW PU ONE ×2 (09:45→12:58)
[2023-10-28] MEDS: Midazolam 10 mg/10 ml VIAL 1 mg/ml 10 ml VIAL (10 mg) IV SLOW PU ONE ×2 (09:45→12:58)
[2023-10-28] MEDS ORDERED: Lidocaine 1% MPF 5 ML VIAL ONE (11:06)
[2023-10-28] MEDS ORDERED: niCARdipine 0.1MG/ML IVPREMIX 20 MG/200 ML BAG IV ONE (11:06)
[2023-10-28] MEDS ORDERED: Heparin 2 UNITS/ML 1000 mls 2,000 ML IV ONE (11:06)
[2023-10-28] MEDS ORDERED: nitroGLYCERIN DRIP 25,000 MCG/250 ML BTL ONE (11:06)
[2023-10-28] MEDS ORDERED: Iohexol 350 (CONTRAST) 100 ML PAK IV ONE (11:06)
[2023-10-28] MEDS ORDERED: Heparin 1,000 UNIT/ML 10 ml (10,000 UNITS) CATHLAB/DIALYSIS ONE (11:35)
[2023-10-28 12:24] LABS: POC SO2 57 %
[2023-10-28 12:29] LABS: POC SO2 94 %
[2023-10-28] MEDS: Lidocaine PATCH 5% PATCH TRANSDERM SCH (18:13)
[2023-10-29] MEDS: Enoxaparin 100 MG/ML SYR SUBCUT SCH (02:32)
[2023-10-29 08:35] LABS: Hematocrit 35.4 % (38-53); Hemoglobin 11.7 g/dL (13.2-16.3); Mean Corpuscular Hemoglobin 27.6 pg (27-33); Mean Corpuscular Volume 83.7 fL (80-97); Mean Platelet Volume 8.1 fL (7.5-11.2); Platelet Count 109 10^3/uL (150-450); Red Blood Count 4.23 10^6/uL (4.06-5.63); Red Cell Distribution Width 17.7 % (12-17); White Blood Count 4.9 10^3/uL (3.6-10.2)
[2023-10-29 09:04] LABS: Albumin 3.1 g/dL (3.2-5.2); Albumin/Globulin Ratio 0.9 (1-3); Calcium 8.4 mg/dL (8.6-10.3); Creatinine, Serum 0.74 mg/dL (0.67-1.17); Globulin 3.3 g/dL (2-4); Potassium 3.8 mmol/L (3.5-5.0); Total Bilirubin 0.4 mg/dL (0.2-1.0); Total Protein 6.4 g/dL (6.4-8.9); eGFR CKD-EPI 98.1 (>60)
[2023-10-29 13:50] VITALS: BP 142/66
== END 2023-10-29 15:20 | disposition short-term general hospital (02) | DRG 871 ==
LOC: ED 19:46 → EDHOLD 19:46 → SUATTDRO 10-23 01:11 → MEDTELE 10-23 02:18 → SUATTDRO 10-25 10:52
PROVIDERS: ADMIT Hospitalist; ATTEND Internal Medicine